=== PATIENT | female | born 1970 | race Caucasian/White ===

== ENCOUNTER 2020-06-22 09:20 | Day surgery (SDC) | payer OTHER ==
[2020-06-22] MEDS ORDERED: fentaNYL 100 MCG/2 ML SDV ONE (09:52)
[2020-06-22] MEDS ORDERED: Propofol 200 MG/20 ML SDV ONE ×2 (09:52→10:14)
[2020-06-22] MEDS ORDERED: Midazolam 1 MG/ML 2 ML SDV ONE (09:52)
[2020-06-22] MEDS ORDERED: Sodium Chloride 0.9% 1,000 ML IV SCH (10:00)
--- NOTE | 2020-06-25 10:25 | OR ---
DATE OF PROCEDURE: 06/22/2020 SURGEON: Abram Montoya MD PROCEDURE: Colonoscopy. FINDINGS: Sigmoid colon polyp, approximately 5 mm, completely removed using cold biopsy forceps. COMPLICATIONS: None. QUALITY HEAD: None. ANESTHESIA: MAC. PREOPERATIVE DIAGNOSIS: Screening colonoscopy. POSTOPERATIVE DIAGNOSIS: Screening colonoscopy. RISKS: Risks, benefits, alternatives, and limitations including, but not limited to infection, bleeding, and perforation were explained to the patient who wished to proceed. PROCEDURE IN DETAIL: The patient was placed in left lateral decubitus position. Digital rectal exam was performed without abnormality. Scope was introduced and advanced atraumatically to the ileocecal valve. A photo was taken of this. Scope was brought back to the ascending, transverse, descending colon, and retroflexed. No evidence of old or new blood. No masses. The aforementioned polyp was identified and completely removed. No colitis. No abnormalities on retroflexion. Greater than 10 minutes was spent removing the scope. Prep was acceptable with approximately 90% of the luminal surface could be seen. The patient tolerated the procedure well. Abram Montoya MD /[id number]
== END 2020-06-22 11:35 | disposition home or self-care (01) ==
LOC: JP.SDS 09:20
PROVIDERS: ATTEND Surgery
DX: Z12.11 Encounter for screening for malignant neoplasm of colon (principal); D12.5 Benign neoplasm of sigmoid colon; Z98.890 Other specified postprocedural states; Z79.899 Other long term (current) drug therapy
CPT/HCPCS: 45380; J2250; J2704; J3010; J7030; 88305